=== PATIENT | male | born 1960 | race Hispanic/Latino ===

== ENCOUNTER 2019-04-16 18:05 | Emergency (ER) | payer SELFPAY ==
[~2019-04-16 18:05] MED LIST: ALBU18HF7 IH
[2019-04-16] MEDS ORDERED: IBUPROFEN 600 MG TABLET ONE (18:56)
== END 2019-04-16 20:18 | disposition home or self-care (01) ==
LOC: EDH 18:05
DX: S76.012A Strain of muscle, fascia and tendon of left hip, initial encounter (principal); X58.XXXA Exposure to other specified factors, initial encounter; J45.909 Unspecified asthma, uncomplicated; Z90.49 Acquired absence of other specified parts of digestive tract; Y93.89 Activity, other specified; Y92.89 Other specified places as the place of occurrence of the external cause; Y99.8 Other external cause status
CPT/HCPCS: 73521

== ENCOUNTER → 2020-10-14 | Outpatient (CLI) | payer OTHER | END | disposition home or self-care (01) | LOC: RAH 14:08 | PROVIDERS: ATTEND Internal Medicine Critical Care Medicine | DX: I51.7 Cardiomegaly (principal); I25.10 Atherosclerotic heart disease of native coronary artery without angina pectoris; J84.10 Pulmonary fibrosis, unspecified; Z90.49 Acquired absence of other specified parts of digestive tract | CPT/HCPCS: 71250 ==

== ENCOUNTER 2024-09-05 11:12 | Emergency (ER) | payer OTHER ==
[~2024-09-05] VITALS: Ht 162.6 cm; Wt 108.9 kg
--- NOTE | 2024-09-05 11:20 | ERN ---
ED Note History of Present Illness Stated Complaint: COUGH Chief Complaint: Cough Time Seen by MD: 11:14 Dictation: PATIENT IS A 63-YEAR-OLD MALE WITH A HISTORY OF DIABETES HYPERTENSION CAD AND A PACEMAKER IN PLACE. HE STATES HE HAS BEEN HAVING SHORTNESS A BREATH ON EXERTION AND GENERALIZED BODY WEAKNESS FOR THE LAST 3-4 DAYS, STARTING ON SATURDAY. DENIES FEVER CHILLS NAUSEA VOMITING. NO CHEST PAIN. STATES HE ALSO HAS A HISTORY OF ASTHMA AND USES AN INHALER. PATIENT HAD DR. LEON AND DR. DU ALONZO. Allergies: Coded Allergies: morphine (Unverified Allergy, Mild, ITCHING, 10/17/14) itching at iv site Home Meds Reported Medications Albuterol Sulfate (Ventolin Hfa) 18 Gm Hfa.aer.ad, 1 INH IH BID PRN for SHORTNESS OF BREATH, #18 10/15/14 Past Medical History Past Medical History: Asthma, Diabetes-Type II, High Cholesterol, Heart Disease, Hypertension Surgical History: Pacer/AICD RN Note Reviewed/Agreed w/PFSH: Yes Review of System Dictation CONSTITUTIONAL: NEGATIVE EXCEPT FOR HPI HEAD/FACE: NEGATIVE EXCEPT FOR HPI EENT: NEGATIVE EXCEPT FOR HPI RESPIRATORY: NEGATIVE EXCEPT FOR HPI SOB GASTROINTESTINAL/ABDOMINAL: NEGATIVE EXCEPT FOR HPI GENITOURINARY: NEGATIVE EXCEPT FOR HPI MUSCULOSKELETAL: NEGATIVE EXCEPT FOR HPI INTEGUMENTARY: NEGATIVE EXCEPT FOR HPI NEUROLOGICAL/PSYCH: NEGATIVE EXCEPT FOR HPI HEMATOLOGIC/LYMPHATIC: NEGATIVE EXCEPT FOR HPI ALL SYSTEMS NEGATIVE, EXCEPT NOTED ABOVE. 13 POINT REVIEW OF SYSTEMS ASSESSED AND ALL NEGATIVE EXCEPT FOR ABOVE. Initial Vital Sign VS Vital Signs Date Time Temp Pulse Resp B/P (MAP) Pulse Ox O2 Delivery O2 Flow Rate FiO2 09/05/24 11:13 97.9 87 18 105/65 97 Room Air 0 09/05/24 11:16 21 Physical Exam Dictation VITAL SIGNS REVIEWED GENERAL APPEARANCE: ALERT, ORIENTED X 3, MILD ACUTE DISTRESS, WELL DEVELOPED, NOURISHED. OBESE HEAD AND FACE: NON-TRAUMATIC. EYES: PERRL, PINK CONJUNCTIVAS, EYELID NO TRAUMA, ANTERIOR CHAMBER WITH ARCUS SENILIS. EARS: PINNAS INTACT AND NO SIGNS OF TRAUMA OR ERYTHEMA EAR CANALS CLEAR AND NO DISCHARGE TM NO ERYTHEMA NOSE: NO DISCHARGE, NO BLEEDING. OROPHARYNX: MOUTH NORMAL, TONGUE PINK, PHARYNX CLEAR,NO ERYTHEMA, TONSILS NO EXUDATES, NO ABSCESSES NOTED, MUCOUS M EMBRANE MOIST NECK: SUPPLE, NON-TENDER, NO THYROMEGALY, NO MASSES, NO JVD, NO BRUITS BREAST:DEFERRED CHEST:NO TENDERNESS, NO CREPITUS, NO PARADOXICAL MOVEMENT, NO RETRACTIONS LUNGS:CLEAR, WELL-VENTILATED, SYMMETRIC, NO RALES, NO WHEEZING, NO RHONCHI, NO STRIDOR, GOOD BREATH SOUNDS BILATERALLY HEART: REGULAR RATE, REGULAR RHYTHM, NO MURMUR, NO GALLOPS VASCULAR: TRACE PERIPHERAL EDEMA, ABDOMEN: SOFT, POSITIVE BOWEL SOUNDS, NONDISTENDED, NO GUARDING, NONTENDER, NO REBOUND, NO MASSES NO HEPATOMEGALY, NO SPLENOMEGALY, NO VILCHIS'S SIGN, NO HERNIAS. RECTAL: DEFERRED GENITAL: DEFERRED NEUROLOGICAL: NORMAL SPEECH, MOTOR FUNCTION INTACT, SENSORY FUNCTION INTACT MUSCULOSKELETAL: NECK NONTENDER, FULL RANGE OF MOTION, BACK NONTENDER, FULL RANGE OF MOTION, EXTREMITIES: NONTENDER, FULL RANGE OF MOTION SKIN: COLOR PINK, DRY, NO TURGOR, NO RASH, NO LACERATIONS, NO ABRASIONS, NO CONTUSIONS. LYMPHATIC: DEFERRED Results (Laboratory/Radiology) Laboratory/Radiology Laboratory Tests Test 09/05/24 11:32 09/05/24 11:42 White Blood Count 8.1 K/uL (4.8-10.8) Red Blood Count 5.39 MIL/uL (4.50-6.20) Hemoglobin 15.0 g/dL (14.0-18.0) Hematocrit 46.1 % (42-54) Mean Corpuscular Volume 85.5 fL (79-99) Mean Corpuscular Hemoglobin 27.8 pg (27.0-33.0) Mean Corpuscular Hemoglobin Concent 32.5 g/dL (32.0-36.0) Red Cell Distribution Width 14.6 % (11.0-15.5) Platelet Count 272 K/uL (130-400) Mean Platelet Volume 10.1 fL (7.5-10.5) Immature Granulocyte % (Auto) 0.2 % (0-1) Neutrophils (%) (Auto) 62.3 % (40.0-77.0) Lymphocytes (%) (Auto) 24.2 % (21.0-51.0) Monocytes (%) (Auto) 8.2 % (3.0-13.0) Eosinophils (%) (Auto) 4.6 % (0.0-8.0) Basophils (%) (Auto) 0.5 % (0.0-5.0) Neutrophils # (Auto) 5.0 K/uL (1.8-7.7) Lymphocytes # (Auto) 2.0 K/uL (1.0-4.8) Monocytes # (Auto) 0.7 K/uL (0.1-1.0) Eosinophils # (Auto) 0.37 K/uL (0.00-0.70) Basophils # (Auto) 0.04 K/uL (0.00-0.20) Absolute Immature Granulocyte (auto 0.02 K/uL (0-1) Nucleated Red Blood Cells 0.0 % (0.0-0.19) Sodium Level 140 mmol/L (136-145) Potassium Level 4.0 mmol/L (3.5-5.1) Chloride Level 105 mmol/L (101-111) Carbon Dioxide Level 26 mmol/L (21-32) Blood Urea Nitrogen 13 mg/dL (7-18) Creatinine 1.0 mg/dL (0.5-1.3) Glomerular Filtration Rate Calc 86 mL/min (>90) Random Glucose 92 mg/dL (70-105) Total Calcium 8.8 mg/dL (8.5-10.1) Magnesium Level 1.80 mg/dL (1.80-2.40) Troponin I High Sensitivity 6 ng/L (4-75) B-Type Natriuretic Peptide 90 pg/mL (0-100) SARS-CoV-2 Antigen (Rapid) PRESUMPTIVE NEGATIVE COMPARISON: None FINDINGS: A frontal projection of the chest was obtained. Mild bilateral pulmonary infiltrates are seen may be related to mild pulmonary vascular congestion with possible superimposed pneumonitis. The heart is borderline enlarged. Pacemaker is seen entering from the left. Degenerative changes are seen. No evidence of aortic calcification is seen. IMPRESSION: 1. Mild bilateral pulmonary infiltrates are seen may be related to mild pulmonary vascular congestion with possible superimposed pneumonitis. Labs Reviewed?: Yes EKG Comment: EKG DEMONSTRATES AV PACED RHYTHM/HEART RATE 68 NON STEMI ED Course ED Course Orders Procedure Category Date Status Time Covid19 (Sars Antigen LAB 09/05/24 Complete Rapid) 11:18 Cbc With Differential LAB 09/05/24 Complete 11:18 B-Type Natriuretic LAB 09/05/24 Complete Peptide 11:18 Chest 1vw RAD 6/14/25 Resulted 11:18 12 Lead Ekg Tracing- EKG 09/05/24 Complete Technical 11:18 Magnesium LAB 09/05/24 Complete 11:18 Troponin I High LAB 09/05/24 Complete Sensitivity 11:18 Basic Metabolic Panel LAB 09/05/24 Complete 11:18 Albuterol 0.083% PHA 09/05/24 Complete 2.5mg/3ml (Proventil 11:30 Blood Cult WILLIAM 09/05/24 Logged 12:12 Azithromycin PHA 09/05/24 Complete (Zithromax) 12:30 Ceftriaxone 2gm Vial PHA 09/05/24 Complete (Rocephin 2gm Inj) 12:30 Current Medications Medications (Trade) Dose Ordered Sig/Kacy Route PRN Reason Start Time Stop Time Status Last Admin Dose Admin Albuterol Sulfate (Proventil 0.083% 2.5mg/3ml) 2.5MG ONCE ONCE IH 09/05/24 11:30 09/05/24 11:31 DC 09/05/24 11:53 Azithromycin (Zithromax) 500 mg ONCE ONCE PO 09/05/24 12:30 09/05/24 12:31 DC Ceftriaxone Sodium (Rocephin 2gm Inj) 2 gm ONCE ONCE IVP 09/05/24 12:30 09/05/24 12:31 DC Vital Signs Date Time Temp Pulse Resp B/P (MAP) Pulse Ox O2 Delivery O2 Flow Rate FiO2 09/05/24 11:54 87 18 09/05/24 11:45 97.5 86 29 108/63 98 Room Air* 0 09/05/24 11:16 97.9 87 18 105/65 97 Room Air* 0 21 09/05/24 11:13 97.9 87 18 105/65 97 Room Air 0 1250/PATIENT STATES FEELS MARKEDLY IMPROVED AFTER TREATMENT. HE HAS RECEIVED ROCEPHIN AZITHROMYCIN, SATURATING 98% ROOM AIR. STATES HE HAS A NEBULIZER AT HOME AND I WOULD NEED REFILLS FOR THAT. HEART Score Response (Comments) Value EKG: Repolarization changes 1 Age: > 65yrs (+2) 2 Risk Factors: 3+ risk factors (+2) 2 Initial Troponin: Normal limit (0) 0 Total 5 Medical Decision Making MDM MDM: DIFFERENTIAL DIAGNOSIS: ACS/AMI/ELECTROLYTE IMBALANCE/DEHYDRATION/PNEUMONIA/BRONCHITIS/CHF EXACERBATION RATIONALE: TESTS CONSIDERED AND ORDERED SECONDARY TO SHARED DECISION MAKING INCLUDE: EKG/LABS/RADIOLOGY PREVIOUS OUTSIDE RECORDS REVIEWED: OLD ER VISITS. RISK OF COMPLICATION AND/OR MORBIDITY OR MORTALITY OF PATIENT MANAGEMENT: NONE MEDICATIONS-PER MEDICATION RECONCILIATION NEED FOR HOSPITALIZATION: PATIENT DOES NOT MEET CRITERIA FOR HOSPITALIZATION. NO NEED FOR EMERGENCY MAJOR/MINOR SURGERY: NO THERE ARE NO SOCIAL CONCERNS WITH THIS PATIENT. PRESCRIPTION DRUG MANAGEMENT ALBUTEROL/ZITHROMAX 500 Q.DAY FOR SEVEN DAYS PRESCRIPTIONS WILL INCLUDE SYMPTOMATIC CARE PATIENT'S PRIOR EXTERNAL MEDICAL RECORDS FROM OTHER ER VISITS WERE REVIEWED BY ME INDICATED. PRIOR TESTING AND RESULTS FROM PREVIOUS VISITS WERE REVIEWED. PRIOR TESTS WERE TAKEN INTO ACCOUNT WITH MEDICAL DECISION MAKING AND RESOURCE UTILIZATION, INDEPENDENT HISTORIAN/HISTORIANS WERE USED TO OBTAIN COMPLETE MEDICAL HISTORY. I INDEPENDENTLY INTERPRETED THE TEST THAT WERE PERFORMED, RESULTS WERE REVIEWED BY ME AND CONSIDERED FINDINGS ON RADIOLOGY IF ORDERED. MEDICAL MANAGEMENT AND EXAMINATION INTERPRETATION DISCUSSIONS WERE HAD BY ME WITH OTHER QUALIFIED HEALTHCARE PROFESSIONALS INDICATED FOR THE PATIENT'S CARE. DX & DISP Disposition: Discharge Departure Impression: Primary Impression: Bronchial pneumonia Additional Impression: Shortness of breath on exertion Condition: Stable Scripts Azithromycin (Zithromax Tri-Kyle) 500 Mg Tablet 500 MG PO DAILY for 7 Days, #7 TAB Prov: DINAH DORMAN TEST DESKMAN 09/05/24 Albuterol Sulfate (Albuterol Sulfate) 2.5 Mg/0.5 Ml Vial.neb 2.5 MG IH Q6H for wheezing/sob, #20 INH 0 Refills Prov: DINAH DORMAN TEST DESKMAN 09/05/24 Additional Instructions: FOLLOW-UP WITH PRIMARY CARE PROVIDER IN 1 TO 2 DAYS. TAKE MEDICATIONS DIRECTED HERE IN THE EMERGENCY ROOM. OKAY TO CONTINUE HOME MEDICATIONS UNLESS OTHERWISE DISCUSSED DURING YOUR VISIT IN THE EMERGENCY ROOM TODAY. RETURN TO YOUR NEAREST EMERGENCY ROOM IF SYMPTOMS WORSEN OR IF THERE IS NO IMPROVEMENT. CALL 911 IF YOU NEED IMMEDIATE ASSISTANCE. TAKE TYLENOL OR MOTRIN [id number] NEEDED AND IF NO CONTRAINDICATIONS ARE PRESENT. INCREASE ORAL HYDRATION. A WOUND CULTURE OR URINE CULTURE WAS ORDERED HERE IN THE EMERGENCY ROOM DEPARTMENT PLEASE FOLLOW-UP WITH PRIMARY CARE PROVIDER AND ADVISE THEM TO GET REPEAT PORTS FROM OUR FACILITY. IF YOU HAD ANY EDGARD WRAP/SPLINTS THAT WERE APPLIED HERE, PLEASE DO NOT REMOVE THEM UNTIL YOU SEE YOUR PRIMARY CARE OR SPECIALTY. TAKE ANTIBIOTICS DIRECTED STARTING TOMORROW. USE ALBUTEROL INHALER EVERY 4 HOURS WHILE AWAKE FOR THE NEXT [address] ALONZO ON SATURDAY FOR FOLLOW UP AND MANAGEMENT. Referrals: DU ALONZO (PCP) Time of Disposition: 12:55 I have reviewed the case, and I agree with, Diagnosis and Plan DINAH DORMAN NP Sep 05, 2024 11:20
[2024-09-05 11:36] LABS: BASOPHILS # (AUTO) 0.04 K/uL (0.00-0.20); BASOPHILS % (AUTO) 0.5 % (0.0-5.0); EOSINOPHILS # (AUTO) 0.37 K/uL (0.00-0.70); EOSINOPHILS % (AUTO) 4.6 % (0.0-8.0); HEMATOCRIT 46.1 % (42-54); IMMATURE GRANULOCYTE ABSOLUTE 0.02 K/uL (0-1); LYMPHOCYTES % (AUTO) 24.2 % (21.0-51.0); MEAN CORPUSCULAR HEMOGLOBIN 27.8 pg (27.0-33.0); MEAN CORPUSCULAR HGB CONC 32.5 g/dL (32.0-36.0); MEAN CORPUSCULAR VOLUME 85.5 fL (79-99); MONOCYTES # (AUTO) 0.7 K/uL (0.1-1.0); MONOCYTES % (AUTO) 8.2 % (3.0-13.0); NEUTROPHILS % (AUTO) 62.3 % (40.0-77.0); PLATELET COUNT (AUTO) 272 K/uL (130-400); RED BLOOD CELL COUNT(AUTO) 5.39 MIL/uL (4.50-6.20); RED CELL DISTRIBUTION WIDTH 14.6 % (11.0-15.5); WHITE BLOOD COUNT (AUTO) 8.1 K/uL (4.8-10.8)
[2024-09-05 11:44] LABS: MAGNESIUM 1.8 mg/dL (1.80-2.40)
--- NOTE | 2024-09-05 11:48 | EKG ---
[facility] Test Date: 2024-09-05 Test Time: 11:45:28 Pat Name: DU SILVA Department: ED Room: Gender: M Senior Internal Auditor: [facility] : 1960 Requested By: DINAH DORMAN Order Number: [id number] Reading MD: Dav Bird Measurements Intervals [place] Rate: 68 P: 84 MA: 141 QRS: 179 QRSD: 122 T: 40 QT: 448 QTc: 478 Interpretive Statements A-V dual-paced complexes w/ some inhibition Biventricular paced rhythm Compared to ECG 10/15/2014 11:46:39 Sinus rhythm no longer present Electronically Signed On 09-06-2024 14:42:26 CDT by Dav Bird Please click the below link to view image of tracing.
[2024-09-05] MEDS: ALBUTEROL 0.083% 2.5 MG/3 ML INH IH ONE (11:53)
[2024-09-05 11:54] VITALS: PULSE 87; RESP 18
[2024-09-05 12:09] LABS: B-TYPE NATRIURETIC PEPTIDE 90 pg/mL (0-100)
--- NOTE | 2024-09-05 12:10 | HMCIMG ---
CHEST 1VW HISTORY: Shortness of breath COMPARISON: None FINDINGS: A frontal projection of the chest was obtained. Mild bilateral pulmonary infiltrates are seen may be related to mild pulmonary vascular congestion with possible superimposed pneumonitis. The heart is borderline enlarged. Pacemaker is seen entering from the left. Degenerative changes are seen. No evidence of aortic calcification is seen. IMPRESSION: 1. Mild bilateral pulmonary infiltrates are seen may be related to mild pulmonary vascular congestion with possible superimposed pneumonitis.
[2024-09-05] MEDS: AZITHROMYCIN 250 MG TABLET PO ONE (12:54)
[2024-09-05] MEDS: cefTRIAXone 2GM VIAL IVP ONE (12:55)
[2024-09-05] MEDS ORDERED: AUD IH (12:56)
[2024-09-05] MEDS ORDERED: AZIT500T2 PO (12:56)
[2024-09-05 13:47] VITALS: BP 98/66; PULSE 60; RESP 13; TEMP 97.9; O2SAT 96
--- NOTE | 2024-09-05 13:52 | NUR ---
DC PATIENT WAS DC'D BY DINAH DORMAN INSIDE SALES RECRUITER TODAY I DC'D PATIENTS IV WITH CATH STILL INTACT AND APPLIED 2X2 GAUZE WITH COBAN I EXPLAINED TO PATIENT TO FOLLOW UP WITH PCP, TAKE NEW PRESCRIPTIONS DIRECTED, AND PROVIDED INFO BASED ON DIAGNOSIS I ANSWERED ANY FURTHER QUESTIONS FROM PATIENT PATIENT WAS TAKEN BY WHEELCHAIR BY ISABELLA ARELLANO, NO COMPLICATIONS
== END 2024-09-05 13:47 | disposition home or self-care (01) ==
LOC: EDH 11:12
DX: J18.0 Bronchopneumonia, unspecified organism (principal); R06.02 Shortness of breath; J45.909 Unspecified asthma, uncomplicated; E11.9 Type 2 diabetes mellitus without complications; E78.00 Pure hypercholesterolemia, unspecified; I10 Essential (primary) hypertension; Z88.5 Allergy status to narcotic agent; Z95.810 Presence of automatic (implantable) cardiac defibrillator; Z20.822 Contact with and (suspected) exposure to COVID-19
CPT/HCPCS: 99285; 96365; 71045; 87426; 83735; 84484; 80048; 83880; 85025; 87040 ×2; 36415; 93005; 94640; J0696

== ENCOUNTER 2025-02-22 08:16 | Observation (INO) | payer OTHER ==
[2025-02-17 14:35] VITALS: BP 102/71; PULSE 85; RESP 17; TEMP 97.8
--- NOTE | 2025-02-17 15:13 | NUR ---
preop felice rt instructed pt on incentive spirometry
[~2025-02-22] VITALS: Ht 160 cm; Wt 106.1 kg
[2025-02-22] VITALS (27 sets, daily range): BP systolic 87–115; BP diastolic 45–69; PULSE 60–75; RESP 16–20; TEMP 97.3–98.4; O2SAT 96–98
[2025-02-22] MEDS ORDERED: PROMETHAZINE HCL 25 MG/ML 1ML AMPULE IM PRN (09:30)
[2025-02-22] MEDS: 0.9%NACL 1000ML 1,000 ML IV ONE (09:37)
[2025-02-22] MEDS ORDERED: TRANEXAMIC ACID 1000MG/10ML ONE (10:13)
[2025-02-22] MEDS ORDERED: MIDAZOLAM HCL 1 MG/ML 2ML VIAL ONE (10:23)
[2025-02-22] MEDS: TRANEXAMIC ACID 1000MG/10ML IV ONE ×2 (11:10→13:22)
[2025-02-22] MEDS ORDERED: GLYCOPYRROLATE 0.2 MG/ML 5 ML VIAL ONE ×2 (11:54→13:41)
[2025-02-22] MEDS ORDERED: NEOSTIGMINE METHYLSULFATE 1MG/ML IV ONE (13:41)
[2025-02-22] MEDS ORDERED: PoTASSium chl 10% ELIXIR 20MEQ 20 MEQ/15 ML UDCUP PO PRN (14:00)
[2025-02-22] MEDS: 0.9%NACL 1000ML 1,000 ML IV SCH (14:00)
[2025-02-22] MEDS ORDERED: PoTASSium chloRIDE 20MEQ ER 20 MEQ ERTAB PO PRN (14:00)
[2025-02-22] MEDS ORDERED: FERROUS FUMARATE 324 MG TABLET PO PRN (14:00)
--- NOTE | 2025-02-22 14:45 | HMCIMG ---
Intraoperative images were obtained for a total hip arthroplasty. /Sherrill
--- NOTE | 2025-02-22 14:52 | OP ---
Operative Note: DATE OF PROCEDURE: 02/22/25 SURGEON: FRANKLIN FAJARDO MD SENIOR QUALITY CONTROL INSPECTOR: Abad Moreira ANESTHESIA: General and fascia iliaca block ANESTHESIOLOGIST/METAL SPRAYER PRODUCTION: David bowie CRNA PREOPERATIVE DIAGNOSIS: Left hip osteoarthritis POSTOPERATIVE DIAGNOSIS: Left hip osteoarthritis PROCEDURE: Left total hip arthroplasty ESTIMATED BLOOD LOSS: 150 cc INDICATIONS: 64-year-old male with bilateral hip osteoarthritis failing conservative management. He was much more symptomatic on the left. After discussion of the risks, benefits, and alternatives, the patient voluntarily agreed to undergo the aforementioned procedure. IMPLANTS: [place] and [employer]hew 56 mm R3 acetabular component with 6.5 mm screws x2 and central hole cover, 0 degree XLPE polyethylene liner, size three standard offset anthology stem with a 40 mm/-4 Oxinium head DESCRIPTION OF PROCEDURE: Patient was properly identified in the preoperative holding area. Surgical site marking was verified and surgery consent reviewed. The patient was then taken to the operating room and placed in supine position on the OR table. After induction of general anesthesia, preoperative antibiotics were given. The patient was then transitioned in the lateral decubitus position with the left side up. All bony prominences were well-padded. Left lower extremity was then prepped and draped in the usual sterile fashion. Surgical time out was done verifying correct surgery, side, site, and location to be performed. We then began the procedure by making approximately 15 cm long incision centered over the greater trochanter. Here we came sharply through skin down to the fascia. Hemostasis was then achieved using Bovie electrocautery. We then incised fascia in line with the skin incision and finger split the tensor muscle proximally. We then placed our Charnley retractor. At this point we identified the vastus ridge and began elevating the full-thickness soft tissue flap off of the vastus ridge, splitting the vastus lateralis and gluteus muscles as necessary. We then proceeded to externally rotate the femur while making this flap. We resected part of the anterior capsule. The femoral head and neck was then delivered into view. We then dislocated the hip and performed a femoral ne ck osteotomy just proximal to the lesser trochanter due to the short and varus neck. We then placed our retractors around the superior and anterior portion of the acetabulum and began to remove the labrum circumferentially. We then began reaming the acetabulum where we reamed up to a size 55 ensuring appropriate anteversion and abduction. We then proceeded to trial with the size 56 acetabular component and this appeared to sit well. We opened our size 56 acetabular component and after irrigating out the wound malleted this into place. It appeared to have good press-fit however we elected to place two of the 6.5 mm screws as well. We drilled and filled the screws in standard fashion in the posterior superior portion of the cup. We then placed the manhole cover on the center of the cup. The wound was thoroughly irrigated out further and we placed the acetabular liner and impacted this in place in standard fashion. We then proceeded to reposition our retractors to elevate the proximal femur out of the wound. We then used the box chisel and canal finder to began preparing the femoral side and sequentially broached up to the aforementioned size stem. Once we felt we had good fit, fill, and control of the femur with the stem in place we then used our trial head component and reduce the hip. However we noticed this to be tight on the soft tissue tensioning with slight lengthening of the limb and then dislocated the hip and trialed once more with the -[address] Upon reduction, we had appropriate soft tissue tensioning, limb length and stable range of motion. We therefore dislocated the hip once more removed our trial components thoroughly irrigated the out the wound and placed our final components in standard fashion. The hip was then reduced with the final components in place. It was found to be stable through a safe range of motion with appropriate soft tissue tensioning and appropriate limb length. At this point we placed a bump under the knee and the foot on the male with a stack of towels to allow for internal rotation. We repaired the abductors back to the greater trochanter using #5 Ethibond. We then repaired the rent in the vastus lateralis and gluteus muscles using #1 Vicryl in a running fashion. We removed our Charnley retractor and began to repair the IT band using #1 Vicryl in interrupted vlenhp-mu-hsoys fashion. At this point we began to close her subcutaneous tissue using 2-0 Vicryl. Running 3-0 Monocryl in subcuticular fashion with Dermabond placed over this for the skin. Island barrier dressing was then applied. Patient was returned to supine position, awakened from anesthesia, and taken to the recovery room in stable condition. FRANKLIN FAJARDO MD Feb 22, 2025 14:52
--- NOTE | 2025-02-22 15:15 | NUR ---
ARRIVAL ON UNIT PATIENT ARRIVED ON UNIT VIA BED. AT THIS TIME THE PATIENT DOES NOT APPEAR TO BE IN DISTRESS. THE PATIENT WAS ORIENTED TO THE ROOM AND INSTRUCTED TO CALL STAFF IF ANYTHING WAS NEEDED. THE PATIENT VERBALIZED UNDERSTANDING.
--- NOTE | 2025-02-22 16:13 | HMCIMG ---
EXAM: CR BILATERAL HIPS, PELVIS, 2 VIEWS CLINICAL HISTORY: S/P left hip surgery. COMPARISON: None provided TECHNIQUE: Two views of the left hip. FINDINGS: Bones: Left total hip arthroplasty noted. No acute fracture or malalignment of prosthesis noted. No periosteal reaction seen. Degenerative changes are seen in right hip joint. Joints: The pilot point left hip joint is replaced by the total hip arthroplasty components. Soft tissues: Mild surrounding soft tissue edema seen. IMPRESSION: 1. Left total hip arthroplasty without complications. 2. Mild surrounding soft tissue edema along left hip. 3. Degenerative changes of right hip joint. /[place]
[2025-02-22] MEDS: HYDROcodone/APAP 5/325 1 TAB TABLET PO PRN (17:42)
[2025-02-22] MEDS: SACUBITRIL/VALSARTAN 1 EACH TABLET PO SCH (21:00)
[2025-02-23] VITALS (8 sets, daily range): BP systolic 88–103; BP diastolic 53–79; PULSE 59–83; RESP 18–19; TEMP 98.5–100.6; O2SAT 95–98
[2025-02-23] MEDS: CYCLOBENZAPRINE HCL 10 MG TABLET PO PRN (03:02)
[2025-02-23 05:00] LABS: NUCLEATED RED BLOOD CELLS 0.0 % (0.0-0.19); PLATELET COUNT (AUTO) 219.0 K/uL (130-400); RED BLOOD CELL COUNT(AUTO) 3.95 MIL/uL (4.50-6.20); RED CELL DISTRIBUTION WIDTH 14.6 % (11.0-15.5); WHITE BLOOD COUNT (AUTO) 9.9 K/uL (4.8-10.8)
[2025-02-23 05:15] LABS: CREATININE 1.1 mg/dL (0.5-1.3); GLOMERULAR FILTR. RATE CALC 76.0 mL/min (>90); GLUCOSE,RANDOM 100.0 mg/dL (70-105); SODIUM SERUM 138.0 mmol/L (136-145); UREA NITROGEN, BLOOD 15.0 mg/dL (7-18)
[2025-02-23] MEDS: (Dapagliflozin Propanediol (Farxiga) 10 MG) PO SCH (08:34)
[2025-02-23] MEDS: SPIRONOLACTONE 25 MG TAB PO SCH (08:34)
[2025-02-23] MEDS: (Fluticasone Propion/Salmeterol (Fluticasone-Salmeterol 10 IH SCH (08:34)
[2025-02-23] MEDS: ASPIRIN 325MG EC TAB PO SCH (08:36)
[2025-02-23] MEDS: CALCIUM CARB 500MG PO PRN (08:44)
--- NOTE | 2025-02-23 10:52 | NUR ---
DCP: [facility] Pt lives at home with his Jen Bazzi [phone] in home they rent, gets $120 food stamp assistance monthly. Pt on SSD, requires assistance with home management, meal prep, transportation Has provider 29hrs a week. t uses a cane, shower chair and grab bars a home. No HH or HD at this time. PCP is García Bello and uses [facility] in [place] for rx needs. Pt states he wants to go to [facility] at me. Pt signed consent for referral. Capri LANDRY made aware
--- NOTE | 2025-02-23 13:30 | NUR ---
ORTHO COORDINATOR: TEACHING REGARDING DVT AND PNEUMONIA PREVENTION, PAIN EXPECTATIONS AND PAIN MANAGEMENT. PATIENT IN BED. B SCD SLEEVES ATTACHED AND FUNCTIONING. DRESSING TO L HIP CLEAN, DRY AND INTACT, ICE PACK IN PLACE. PATIENT RETURN DEMONSTRATED PROPER USE OF INCENTIVE SPIROMETER AND VERBALIZED PROPER FREQUENCY OF USE. PATIENT RETURN DEMONSTRATED PROPER FOOT FLEXION AND EXTENSION EXERCISES, RATIONALE FOR PERFORMING REVIEWED. PATIENT INTENDS TO DISCHARGE TO REHAB. REHAB PROCESS EXPLAINED. SET EXPECTATION FOR PATIENT TO SHOWER TODAY, RATIONALE PROVIDED. PATIENT ENCOURAGED TO CONTINUE PREMEDICATING PRIOR TO PHYSICAL THERAPY AND PERIODS OF HIGH ACTIVITY, TO CONTINUE USE OF INCENTIVE SPIROMETER UNTIL PRESURGERY ACTIVITY LEVELS ACHIEVED, TO CONTINUE TO INCREASE ACTIVITY, KEEP HYDRATED AND ICE SURGICAL SITE. PATIENT VERBALIZED UNDERSTANDING TO ALL INSTRUCTIONS. PATIENT PASSING GAS, HAS NOT HAD BOWEL MOVEMENT. NO ADDITIONAL QUESTIONS OR CONCERNS AT THIS TIME.
--- NOTE | 2025-02-23 19:08 | PN ---
Ortho POD 1 - late entry seen around noon Doing well. Reports pain controlled. Voiding on his own. Tolerating PO. Passing gas. Denies BM or calf pain. persistant mild hypotention, other vss,af nad, A&Ox3 nonlabored breathing resting comfortably reclined in bed at the time of my visit. SCDs on but not plugged in. left hip dressing c/d/i with mild ecchymosis and edema calf soft NT/neg homans H&H: 10.7/33.6 Calcium 7.5 DCP is for [facility] Only stood at EOB with PT yesterday d/t soft BP, Ambulated with PT 50 ft this AM POD 1 s/p L ARLETTE doing well asymptomatic acute blood loss anemia -correct calcium per protocol -encouraged IS and OOBTC -encouraged bathing -dc gabapentin d/t hypotension -continue my routine post op plan for ARLETTE Vitals/Labs Vital Signs Date Time Temp Pulse Resp B/P (MAP) Pulse Ox O2 Delivery O2 Flow Rate FiO2 02/23/25 13:48 98 Room Air* 0 21 02/23/25 11:58 98.6 70 19 96/54 Laboratory Tests 02/23/25 04:53 Medications Current Medications Cefazolin Sodium 2 gm STK-MED ONCE .ROUTE; Start 02/22/25 at 08:38; Stop 02/22/25 at 08:38; Status DC Sodium Chloride 1,000 ml @ As Directed STK-MED ONCE IV Last administered on 02/22/25at 09:37; Start 02/22/25 at 08:38; Stop 02/22/25 at 08:38; Status DC Ondansetron HCl 4 mg AD PRN IVP; Start 02/22/25 at 09:30; Stop 02/22/25 at 14:43; Status DC Metoclopramide HCl 10 mg AD PRN IVP; Start 02/22/25 at 09:30; Stop 02/22/25 at 14:43; Status DC Promethazine HCl 25 mg AD PRN IM; Start 02/22/25 at 09:30; Stop 02/22/25 at 14:43; Status DC Ketorolac Tromethamine 30 mg AD PRN IV; Start 02/22/25 at 09:30; Stop 02/22/25 at 14:43; Status DC Morphine Sulfate 2 mg AD PRN IVP; Start 02/22/25 at 09:30; Stop 02/22/25 at 14:43; Status DC Fentanyl Citrate 25 mcg Q5MIN PRN IVP Last administered on 02/22/25at 14:06; Start 02/22/25 at 09:30; Stop 02/22/25 at 14:43; Status DC Naloxone HCl 0.1 mg AD PRN IVP; Start 02/22/25 at 09:30; Stop 02/22/25 at 14:43; Status DC Tranexamic Acid 1,000 mg STK-MED ONCE .ROUTE; Start 02/22/25 at 10:13; Stop 02/22/25 at 10:13; Status DC Ondansetron HCl 4 mg STK-MED ONCE .ROUTE; Start 02/22/25 at 10:21; Stop 02/22/25 at 10:21; Status DC Propofol 200 mg STK-MED ONCE IV; Start 02/22/25 at 10:21; Stop 02/22/25 at 10:22; Status DC Midazolam HCl 2 mg STK-MED ONCE .ROUTE; Start 02/22/25 at 10:23; Stop 02/22/25 at 10:23; Status DC Rocuronium [place] 50 mg STK-MED ONCE .ROUTE; Start 02/22/25 at 10:23; Stop 02/22/25 at 10:23; Status DC Fentanyl Citrate 100 mcg STK-MED ONCE .ROUTE; Start 02/22/25 at 10:23; Stop 02/22/25 at 10:23; Status DC Phenylephrine HCl 10 mg STK-MED ONCE IV; Start 02/22/25 at 10:28; Stop 02/22/25 at 10:28; Status DC Rocuronium [place] 50 mg STK-MED ONCE .ROUTE; Start 02/22/25 at 11:22; Stop 02/22/25 at 11:22; Status DC Cefazolin Sodium 2 gm STK-MED ONCE IVPB Last administered on 02/22/25at 11:09; Start 02/22/25 at 11:09; Stop 02/22/25 at 11:42; Status DC Tranexamic Acid 1,000 mg STK-MED ONCE IV Last administered on 02/22/25at 11:10; Start 02/22/25 at 11:10; Stop 02/22/25 at 11:42; Status DC Glycopyrrolate 1 mg STK-MED ONCE .ROUTE; Start 02/22/25 at 11:54; Stop 02/22/25 at 11:54; Status DC Rocuronium [place] 50 mg STK-MED ONCE .ROUTE; Start 02/22/25 at 12:58; Stop 02/22/25 at 12:58; Status DC Morphine Sulfate 10 mg STK-MED ONCE IV; Start 02/22/25 at 12:59; Stop 02/22/25 at 12:59; Status DC Tranexamic Acid 1,000 mg STK-MED ONCE IV Last administered on 02/22/25at 13:22; Start 02/22/25 at 13:22; Stop 02/22/25 at 13:24; Status DC Glycopyrrolate 1 mg STK-MED ONCE .ROUTE; Start 02/22/25 at 13:41; Stop 02/22/25 at 13:41; Status DC Neostigmine Methylsulfate 10 mg STK-MED ONCE IV; Start 02/22/25 at 13:41; Stop 02/22/25 at 13:41; Status DC Fentanyl Citrate 100 mcg STK-MED ONCE .ROUTE; Start 02/22/25 at 13:43; Stop 02/22/25 at 13:43; Status DC Sodium Chloride 1,000 ml @ 100 mls/hr Q10H IV; Start 02/22/25 at 14:00; Stop 02/23/25 at 13:59; Status DC Polyethylene Glycol 17 gm DAILY PO Last administered on 02/23/25at 08:35; Start 02/23/25 at 09:00; Stop 03/25/25 at 08:59 Bisacodyl 10 mg DAILY PRN RC; Start 02/25/25 at 14:00; Stop 03/27/25 at 13:59 Ketorolac Tromethamine 15 mg Q6H PRN IV; Start 02/23/25 at 14:00; Stop 02/28/25 at 13:59 Ferrous Fumarate 324 mg DAILY PRN PO; Start 02/22/25 at 14:00; Stop 03/24/25 at 13:59 Calcium Carbonate 500 mg Q12H PRN PO Last administered on 02/23/25at 08:44; Start 02/22/25 at 14:00; Stop 03/24/25 at 13:59 Insulin Human Regular INSULIN SLIDING SCAL... ACHS SQ; Start 02/22/25 at 16:30; Stop 03/24/25 at 16:29 Ondansetron HCl 4 mg Q6H PRN IVP; Start 02/22/25 at 14:00; Stop 03/24/25 at 13:59 Cefazolin Sodium 2 gm Q8H IVP Last administered on 02/23/25at 03:48; Start 02/22/25 at 19:00; Stop 02/23/25 at 03:01; Status DC Gabapentin 100 mg TID PO Last administered on 02/23/25at 14:04; Start 02/22/25 at 14:00; Stop 03/24/25 at 13:59 Cyclobenzaprine HCl 5 mg Q8H PRN PO Last administered on 02/23/25at 11:30; Start 02/22/25 at 14:00; Stop 03/24/25 at 13:59 Docusate Sodium 100 mg BID PO Last administered on 02/23/25at 08:35; Start 02/22/25 at 21:00; Stop 03/24/25 at 20:59 Ketorolac Tromethamine 15 mg Q8H IV Last administered on 02/23/25at 05:45; Start 02/22/25 at 14:00; Stop 02/23/25 at 06:01; Status DC Aspirin 325 mg DAILY PO Last administered on 02/23/25at 08:36; Start 02/23/25 at 09:00; Stop 03/25/25 at 08:59 Potassium Chloride 100 ml @ 100 mls/hr AD PRN IV; Start 02/22/25 at 14:00; Stop 03/24/25 at 13:59 Potassium Chloride 20 meq AD PRN PO; Start 02/22/25 at 14:00; Stop 03/24/25 at 13:59 Potassium Chloride 20 meq AD PRN PO; Start 02/22/25 at 14:00; Stop 03/24/25 at 13:59 Tramadol HCl 50 mg Q6H PRN PO Last administered on 02/23/25at 11:30; Start 02/22/25 at 14:00; Stop 02/27/25 at 13:59 Acetaminophen/ Hydrocodone Bitart Q4H PRN PO Last administered on 02/23/25at 18:11; Start 02/22/25 at 14:00; Stop 02/27/25 at 13:59 Atorvastatin Calcium 40 mg HS PO Last administered on 02/22/25at 21:18; Start 02/22/25 at 21:00; Stop 03/24/25 at 20:59 Carvedilol 25 mg BID PO Last administered on 02/22/25at 21:19; Start 02/22/25 at 21:00; Stop 03/24/25 at 20:59 Furosemide 20 mg AM PO; Start 02/23/25 at 09:00; Stop 03/25/25 at 08:59 Losartan Potassium 25 mg AM PO; Start 02/23/25 at 09:00; Stop 02/22/25 at 14:04; Status DC Metformin HCl 500 mg AM PO Last administered on 02/23/25at 08:35; Start 02/23/25 at 09:00; Stop 03/25/25 at 08:59 Sacubitril/ Valsartan 1 each BID PO Last administered on 02/23/25at 08:36; Start 02/22/25 at 21:00; Stop 03/24/25 at 20:59 Spironolactone 25 mg AM PO; Start 02/23/25 at 09:00; Stop 03/25/25 at 08:59 Home Med (Albuterol Sulfate (Kari... AM PRN IH; Start 02/22/25 at 14:30; Stop 03/24/25 at 14:29 Home Med (Dapagliflozin Propanediol (Farxiga)... AM PO; Start 02/23/25 at 09:00; Stop 03/25/25 at 08:59 Home Med (Fluticasone Propion/ [place]... AM IH; Start 02/23/25 at 09:00; Stop 03/25/25 at 08:59 Pantoprazole Sodium 40 mg DAILY PO Last administered on 02/23/25at 08:36; Start 02/23/25 at 09:00; Stop 03/25/25 at 08:59 Fentanyl Citrate 100 mcg STK-MED ONCE .ROUTE; Start 02/22/25 at 14:04; Stop 02/22/25 at 14:05; Status DC Ketorolac Tromethamine 15 mg STK-MED ONCE .ROUTE; Start 02/22/25 at 14:16; Stop 02/22/25 at 14:16; Status DC FRANKLIN FAJARDO MD Feb 23, 2025 19:08
[2025-02-24 03:49] VITALS: BP 101/52; PULSE 66; RESP 19; TEMP 100.2
[2025-02-24 08:00] VITALS: BP 85/54; PULSE 69; RESP 18; TEMP 97.9
[2025-02-24 12:00] VITALS: BP 112/56; PULSE 69; RESP 18; TEMP 98.1
[2025-02-24] MEDS: LACTULOSE 20 GM/30 ML UDCUP PO ONE (15:09)
[2025-02-24 16:00] VITALS: BP 91/58; PULSE 63; RESP 18; TEMP 97.9
[2025-02-24 20:00] VITALS: BP 114/71; PULSE 72; RESP 18; TEMP 100.4; O2SAT 96
[2025-02-24 21:24] VITALS: TEMP 98.8
--- NOTE | 2025-02-24 21:25 | NUR ---
TEMP 100.4 DR. FAJARDO'S ANSWERING SERVICE CALLED AT THIS TIME.
--- NOTE | 2025-02-24 21:57 | NUR ---
NO RETURN CALL: DR. FAJARDO CALLED ON HER CELL PHONE NUMBER AND NOTIFIED AT 1999, PT HAD TEMP 100.4 TORADOL IV WAS GIVEN AND RE-CHECK TEMP NOW IS 98.8. DR. FAJARDO MADE AWARE. INSTRUCTED NOT HAVE PT CONTINUE TO DO INCENTIVE SPIROMETER. PT INSTRUCTED IS IS VERY IMPORTANT IN PREVENTING POST OP PNEUMONIA. PT DID RETURN DEMONSTRATION > 2500 X 10. PT INSTRUCTED TO CONTINUE DOING EXERCISES EVERY 1 HOUR WHILE AWAKE, PT VERBALIZES UNDERSTANDING.
[2025-02-25 00:19] VITALS: BP 96/56; PULSE 62; RESP 18; TEMP 99.2
[2025-02-25] MEDS: HYDROcodone/APAP 5/325 1 TAB TABLET PO PRN (03:33)
[2025-02-25 04:00] VITALS: BP 105/54; PULSE 73; RESP 18; TEMP 98.6
[2025-02-25 08:00] VITALS: BP 94/50; PULSE 75; RESP 20; TEMP 98.2
[2025-02-25 09:00] VITALS: O2SAT 96
--- NOTE | 2025-02-25 10:00 | NUR ---
SPOKE TO EKATERINA ROSADO REGARDING PATIENT'S LOW BLOOD PRESSURE OF 94/54 AND SCHEDULED MEDICATIONS OF ALDACTONE, COREG, AND LASIX. HELD MEDICATIONS PER CSR RETAIL.
[2025-02-25 12:00] VITALS: BP 109/65; PULSE 68; RESP 16; TEMP 98.8
--- NOTE | 2025-02-25 12:56 | NUR ---
PATIENT REPORTED NEW ONSET OF COUGH AND SPUTUM. PATIENT STATED HE HAS EPISODES OF COUGH THAT COME AND GO AWAY. NOTIFIED DR FAJARDO OF COUGH AND PATIENTS BP OF 109/65, AND ASKED IF HELD SCHEDULED MEDICATIONS COULD BE GIVEN. DR. FAJARDO STATED PATIENT IS CLEAR TO BE DISCHARGED AND TO HOLD MEDICATIONS.
--- NOTE | 2025-02-25 15:15 | NUR ---
REPORT GIVEN TO KIKI CORONA PATIENT TRANSFER TO [facility].
[2025-02-25 16:00] VITALS: BP 98/51; PULSE 73; RESP 20; TEMP 99
== END 2025-02-25 16:45 ==
LOC: DAH 08:16 → DAHIP 08:17 → DAH 08:17 → 4DH 15:15
PROVIDERS: ADMIT Student in an Organized Health Care Education/Training Program; ATTEND Student in an Organized Health Care Education/Training Program
DX: M16.12 Unilateral primary osteoarthritis, left hip (principal); M21.70 Unequal limb length (acquired), unspecified site; M25.552 Pain in left hip; J45.909 Unspecified asthma, uncomplicated; I10 Essential (primary) hypertension; Z98.890 Other specified postprocedural states; Z79.899 Other long term (current) drug therapy
CPT/HCPCS: 84134; 86140; 36415 ×2; 87641; 27130; 96374; 96375; 64447; 82948 ×14; 73503; 73521; 97161; 97530 ×7; 96376 ×3; 80048; 85027; 97116 ×5; G0378 ×75; A4600; A4223 ×2; A4663; C1776; J3010 ×3; J3490 ×7; J7030 ×2; J2250; J2704; J2274; J2405; J2710; J1885 ×6; J2371; J0690 ×4; A4649 ×3; A6255; A4215; A4213; A4222; A4221; A4216